=== PATIENT | female | born 1980 | race Caucasian/White ===

== ENCOUNTER 2017-03-25 20:24 | Inpatient (IN) ==
[2017-03-25] MEDS ORDERED: 0.9 % Sodium Chloride 1,000 ML IVC ONE (20:36)
[2017-03-25 20:42] LABS: Basophils % 0.1 %; Hematocrit 38.2 % (35.3-44.9); Hemoglobin 12.9 g/dL (11.5-15.4); Immature Granulocytes % 0.3 % (0-4); Lymphocytes # 0.4 K/mcL (0.6-4.6); Lymphocytes % 2.5 %; Mean Corpuscular HGB Conc 33.8 g/dL (31.6-35.5); Mean Corpuscular Hemoglobin 30.1 pg (28.0-33.3); Mean Corpuscular Volume 89.3 fL (83.0-100.0); Mean Platelet Volume 10.3 fL (9.4-12.4); Monocytes # 0.6 K/mcL (0.0-1.3); Neutrophils # 14.4 K/mcL (1.6-8.9); Platelet Count 195 K/mcL (140-400); Red Blood Count 4.28 M/mcL (3.82-4.97); Red Cell Distribution Width 12.6 % (11.5-14.5); Segmented Neutrophils % 93.1 %
[2017-03-25] MEDS ORDERED: *HR* HYDROmorphone (PF) 1 MG/ML SYRINGE IVP ONE (20:44)
--- NOTE | 2017-03-25 20:47 | Emergency Department Note ---
Disposition Clinical Impression: Acute appendicitis Qualifiers: Acute appendicitis type: unspecified acute appendicitis type Qualified Code(s) : K35.80 - Unspecified acute appendicitis Disposition: Admitted As Inpatient Condition: Undetermined Time of Disposition: 22:40 Abdominal Pain HPI - General Chief Complaint: ED Abdominal Pain Stated Complaint: abdominal pains Time Seen by Provider: 03/25/17 20:27 Source: patient Mode of arrival: EMS Limitations: no limitations Nursing Notes Reviewed: Yes Vital Signs Reviewed: Yes - History of Present Illness HPI Narrative: 36-year-old female who previous medical history arrives [facility] emergency department complaining of right lower quadrant pain is radiating into her abdomen diffusely. The patient states this started last night and she started taking [id number] medications but she states it acutely worsened so she called EMS. The patient denies any other complaints other than associated nausea. The patient denies any vomiting, hematochezia, melena, diarrhea, constipation, vaginal discharge, dysuria. She is resting comfortably in bed at this time but is stating she would like some more pain medication. Pt Subjective Complaint: abdominal pain Onset (ago): hour(s) (18) Consistency: constant, Worsening Location: RLQ Pain Severity: moderate, severe Pain Scale: 8 Quality: cramping Radiation: none Migration to: no migration Improves with: nothing Worsens with: nothing Associated symptoms: Reports: nausea Treatments prior to arrival: NSAIDs, OTC medications, prescription analgesics - Related Data Allergies Allergy/AdvReac Type Severity Reaction Status Date / Time Sulfa (Sulfonamide AdvReac Rash Verified 03/25/17 20:26 Antibiotics) All systems ED: reviewed and negative except as stated. Constitutional: Reports: fever, chills. Denies: weakness ENT ED: Denies: congestion Cardiovascular: Denies: chest pain Respiratory: Denies: dyspnea Gastrointestinal: Reports: abdominal pain, nausea. Denies: vomiting, diarrhea, constipation, hematemesis, melena, hematochezia Genitourinary: Denies: urgency, dysuria, frequency, hematuria, discharge, abnormal menses Musculoskeletal: Denies: back pain Integumentary: Denies: rash Neurological: Denies: headache Abdominal Pain PMH - Past Medical History Medical history: Reports: no medical history Female Surgical History: Reports: other (Endometrial laparoscopy) [employer] history: Reports: endometriosis Psychiatric history: Reports: no psych history - Social History Smoking status: Never smoker Alcohol use: Reports: rarely Drug use: Reports: none Physical Exam - General Limitations: no limitations General appearance: alert, in no apparent distress - Head Head exam: atraumatic, normocephalic, normal inspection - Eye Eye exam: Present: normal appearance, PERRL, EOMI - ENT ENT exam: normal exam, normal oropharynx, mucous membranes moist - Neck Neck exam: Present: normal inspection, full ROM, trachea midline - Chest Chest inspection: Present: normal inspection, symmetric chest wall rise - Respiratory Respiratory exam: Present: normal lung sounds bilaterally - Cardiovascular Cardiovascular exam: Present: normal rhythm, tachycardia, normal heart sounds - Abdominal Exam Abdominal exam: Present: soft, tenderness (RLQ), guarding (voluntary), heel tap sign, tenderness at McBurney's Point. Absent: distention, rebound, rigidity, Blevins's sign, Rovsing's sign - Extremities Exam Extremities exam: Present: normal inspection, full ROM. Absent: tenderness, pedal edema Course Vital Signs Temperature 101.9 F H 03/25/17 20:26 Pulse Rate 116 03/25/17 20:26 Respiratory Rate 20 03/25/17 20:26 Blood Pressure 119/77 03/25/17 20:26 O2 Sat by Pulse Oximetry 97 03/25/17 20:26 Temperature 99.1 F 03/26/17 01:03 Pulse Rate 92 03/26/17 01:03 Respiratory Rate 12 03/26/17 01:03 Blood Pressure 98/61 03/26/17 01:03 O2 Sat by Pulse Oximetry 96 03/26/17 01:03 Oxygen Delivery Oxygen Delivery Room Air Abdominal Pain - MDM Narrative Medical decision making narrative: Patient's CT findings consistent with appendicitis. The patient is a leukocytosis that is new. We will consult surgery at this time. The patient was started on Zosyn. They noted that the CT scan shows no signs of definitive rupture. There is a moderate amount of pelvic fluid as well. Spoke to Dr. Celis who accepted patient to his service. - Lab Data Lab results reviewed: Yes I reviewed the patient's lab results. Result diagrams: 03/25/17 20:37 03/25/17 20:37 Lab Results 03/25/17 03/25/17 03/25/17 Range/Units 20:37 20:37 20:48 WBC 15.4 H (4.3-11.1) K/mcL RBC 4.28 (3.82-4.97) M/mcL Hgb 12.9 (11.5-15.4) g/dL Hct 38.2 (35.3-44.9) % MCV 89.3 (83.0-100.0) fL MCH 30.1 (28.0-33.3) pg MCHC 33.8 (31.6-35.5) g/dL RDW 12.6 (11.5-14.5) % Plt Count 195 (140-400) K/mcL MPV 10.3 (9.4-12.4) fL Immature Gran % 0.3 (0-4) % Seg Neutrophils % 93.1 % Lymphocytes % 2.5 % Monocytes % 4.0 % Eosinophils % 0.0 % Basophils % 0.1 % Neutrophils # 14.4 H (1.6-8.9) K/mcL Lymphocytes # 0.4 L (0.6-4.6) K/mcL Monocytes # 0.6 (0.0-1.3) K/mcL Eosinophils # 0.0 (0.0-0.6) K/mcL Basophils # 0.0 (0.0-0.2) K/mcL Sodium 134 L (136-145) mEq/L Potassium 3.8 (3.5-4.5) mEq/L Chloride 104 (98-109) mEq/L Carbon Dioxide 20 (19-29) mEq/L BUN 14 (7-20) mg/dL Creatinine 0.68 (0.57-1.11) mg/dL Est GFR ( Amer) > 60 (> 60) Est GFR (Non-Af Amer) > 60 (> 60) BUN/Creatinine Ratio 21 (6-26) Glucose 114 H (70-99) mg/dL Calculated Osmolality 279 L (280-300) Lactic Acid 0.7 (0.5-2.2) mmol/L Calcium 8.7 (8.6-10.8) mg/dL Total Bilirubin 0.8 (0.2-1.2) mg/dL AST 19 (5-34) Units/L ALT 19 (0-55) Units/L Alkaline Phosphatase 48 (38-126) Units/L Serum Total Protein 7.1 (6.0-8.3) g/dL Albumin 3.5 (3.5-5.0) g/dL Globulin 3.6 H (2.4-3.5) g/dL Albumin/Globulin Ratio 1.0 L (1.1-2.2) Lipase < 10 (8-78) Units/L Urine Color (Yellow) Urine Clarity (Clear) Urine pH (5.0-8.0) pH Units Ur Specific Nelson (1.010-1.025) Urine Protein (Neg-Trace) mg/dL Urine Glucose (UA) (Normal) mg/dL Urine Ketones (Negative) mg/dL Urine Blood (Negative) Urine Nitrite (Negative) Urine Bilirubin (Negative) Urine Urobilinogen (Normal) mg/dL Ur Leukocyte Esterase (Negative) Urine Microscopic RBC (0-3) per hpf Urine Microscopic WBC (0-3) per hpf Ur Squamous Epith Cells (None-Few) per lpf Urine Bacteria (None-Few) per hpf Hyaline Casts (None-Few) per lpf Ur Culture Indicated? (NO) Urine Test (Negative) 03/25/17 03/25/17 Range/Units 21:10 21:10 WBC (4.3-11.1) K/mcL RBC (3.82-4.97) M/mcL Hgb (11.5-15.4) g/dL Hct (35.3-44.9) % MCV (83.0-100.0) fL MCH (28.0-33.3) pg MCHC (31.6-35.5) g/dL RDW (11.5-14.5) % Plt Count (140-400) K/mcL MPV (9.4-12.4) fL Immature Gran % (0-4) % Seg Neutrophils % % Lymphocytes % % Monocytes % % Eosinophils % % Basophils % % Neutrophils # (1.6-8.9) K/mcL Lymphocytes # (0.6-4.6) K/mcL Monocytes # (0.0-1.3) K/mcL Eosinophils # (0.0-0.6) K/mcL Basophils # (0.0-0.2) K/mcL Sodium (136-145) mEq/L Potassium (3.5-4.5) mEq/L Chloride (98-109) mEq/L Carbon Dioxide (19-29) mEq/L BUN (7-20) mg/dL Creatinine (0.57-1.11) mg/dL Est GFR ( Amer) (> 60) Est GFR (Non-Af Amer) (> 60) BUN/Creatinine Ratio (6-26) Glucose (70-99) mg/dL Calculated Osmolality (280-300) Lactic Acid (0.5-2.2) mmol/L Calcium (8.6-10.8) mg/dL Total Bilirubin (0.2-1.2) mg/dL AST (5-34) Units/L ALT (0-55) Units/L Alkaline Phosphatase (38-126) Units/L Serum Total Protein (6.0-8.3) g/dL Albumin (3.5-5.0) g/dL Globulin (2.4-3.5) g/dL Albumin/Globulin Ratio (1.1-2.2) Lipase (8-78) Units/L Urine Color Yellow (Yellow) Urine Clarity Clear (Clear) Urine pH 6.0 (5.0-8.0) pH Units Ur Specific Nelson 1.023 (1.010-1.025) Urine Protein Negative (Neg-Trace) mg/dL Urine Glucose (UA) Normal (Normal) mg/dL Urine Ketones >=160 H (Negative) mg/dL Urine Blood Negative (Negative) Urine Nitrite Positive A (Negative) Urine Bilirubin Negative (Negative) Urine Urobilinogen Normal (Normal) mg/dL Ur Leukocyte Esterase Negative (Negative) Urine Microscopic RBC 3-5 H (0-3) per hpf Urine Microscopic WBC 5-15 H (0-3) per hpf Ur Squamous Epith Cells Many H (None-Few) per lpf Urine Bacteria Moderate H (None-Few) per hpf Hyaline Casts None Seen (None-Few) per lpf Ur Culture Indicated? YES A (NO) Urine Test Negative (Negative) - Radiology Data Radiology results reviewed: Yes I reviewed the patient's radiology results. Abdomen/Pelvis CT 03/25/17 20:30 IMPRESSION: 1. Findings compatible with acute appendicitis. No definite rupture is identified at this time. No fluid collections are identified. No extraluminal gas is seen. 2. Moderate amount of free pelvic fluid. D/ / Roberto Pelaez MD / Roberto Pelaez MD Interpreting Provider: Roberto Pelaez MD Chest X-Ray 03/25/17 20:36 IMPRESSION: Negative portable chest. D/ / Memo Avilez MD / Memo Avilez MD Interpreting Provider: Memo Avilez MD
[2017-03-25 20:58] LABS: Alanine Aminotransferase 19 Units/L (0-55); Albumin 3.5 g/dL (3.5-5.0); Alkaline Phosphatase 48 Units/L (38-126); Aspartate Amino Transferase 19 Units/L (5-34); BUN/Creatinine Ratio 21 (6-26); Blood Urea Nitrogen 14 mg/dL (7-20); Calcium 8.7 mg/dL (8.6-10.8); Carbon Dioxide 20 mEq/L (19-29); Chloride 104 mEq/L (98-109); Globulin 3.6 g/dL (2.4-3.5); Glucose 114 mg/dL (70-99); Osmolality,Calculated 279 (280-300); Potassium 3.8 mEq/L (3.5-4.5); Sodium 134 mEq/L (136-145); Total Protein 7.1 g/dL (6.0-8.3); eGFR For African Americans > 60 (> 60); eGFR For Non-African Americans > 60 (> 60)
[2017-03-25 21:01] LABS: Lipase < 10 Units/L (8-78)
[2017-03-25 21:10] LABS: Bilirubin,Total 0.8 mg/dL (0.2-1.2)
--- NOTE | 2017-03-25 21:18 | Emergency Department Note ---
START Narrative - START START: I examined this patient and my medical decision-making was reviewed with the Resident Physician. I agree with the documented findings, disposition and treatment plan as described except to the extent set forth below. 36 year old female presents to the ED with complaitns of RUQ and RLQ pain that started a few days ago and is now located in the periumbilical to RLQ area. Lj states that she called the squad because the diffuse burning pain was causing difficult wiht movement. Patient bryan snot have a surigcal abdomen at this time. (-) murphys, and mcBurneys point. Lj states that she ahs had nausea without vomitting but also decreased appetite. She has no difficulty with urination at thsi time and denies diarrhea or blood in urine or stool. Erika dnies cough cold congestion symptms as well. She has been on a Bone Marrow Broth diet recently and partner at bedside states that last time she did this she had simliar symptoms but they resoleved and thinks that maybe it may be due to that. Lj is not complaining of any neurologica symptms at this time. Patient has a fever in the department and is tachcyardiac with a WBC of 15. Lj meeets SIRS criteria and we will do a ABCT with IV contrst to rule out appendicitis, colitis, acute christie and other simliar intrabaodminal pathologies.
[2017-03-25 21:27] LABS: Bilirubin,Urine Negative (Negative); Blood,Urine Negative (Negative); Clarity,Urine Clear (Clear); Color,Urine Yellow (Yellow); Glucose,Urine (UA) Normal (Normal); Ketones,Urine >=160 mg/dL (Negative); Leukocyte Esterase,Urine Negative (Negative); Nitrite,Urine Positive (Negative); Protein,Urine Negative (Neg-Trace); Specific Gravity,Urine 1.023 (1.010-1.025); Urobilinogen,Urine Normal (Normal)
[2017-03-25 21:31] LABS: Bacteria,Urine Moderate per hpf (None-Few); Hyaline Casts,Urine None Seen per lpf (None-Few); Squamous Epithelial Cell,Urine Many per lpf (None-Few)
[2017-03-25] MEDS ORDERED: Piperacillin/Tazobactam 3.375 GM in Water for inj. (sterile) 20 ML IVP ONE (22:19)
[2017-03-25] MEDS ORDERED: Piperacillin/Tazobactam 3.375 GM/200 ML BAG IVPB ONE (22:56)
[2017-03-26] MEDS ORDERED: Ondansetron 4 MG/2 ML VIAL IVP PRN (00:41)
[2017-03-26] MEDS: *HR* HYDROmorphone (PF) 1 MG/ML SYRINGE IVP PRN ×5 (01:32→18:31)
[2017-03-26] MEDS: 0.9 % Sodium Chloride 1,000 ML IVC SCH ×3 (01:32→18:33)
[2017-03-26] MEDS ORDERED: Acetaminophen IV 1,000 MG/100 ML INFUS..BTL IVPB ONE (06:12)
--- NOTE | 2017-03-26 06:36 | General Surg History&Physical ---
Date of Encounter: 03/26/17 Time of Encounter: 06:00 Assessment and Plan (1) RLQ abdominal pain Current Visit: Yes Status: Acute The assessment and plan as outlined above was discussed with the patient and/or family members who expressed understanding and agreement. All questions were answered. Given free fluid in the pelvis (detailed below) and pt's history of endometriosis differential diagnoses include perforated appendix, ruptured ovarian cyst. Plan: 1. Will obtain Non-OB transvaginal ultrasound (will use straight/cath clark to inflate the bladder for ultrasound given NPO for possible surgical intervention in the next 24-48 hours. 2. Continue NPO 3. Continue GI and DVT prohpylaxis 4. Continue IVF and discomfort management 5. Preferred 4.5G IV Zosyn, but per pharmacy the hospital is out, switched to 3.[address] noted Findings compatible with acute appendicitis. No definite rupture is identified at this time. No fluid collections are identified. No extraluminal gas is seen. 2. Moderate amount of free pelvic fluid. (2) Acute appendicitis Current Visit: Yes Status: Acute The assessment and plan as outlined above was discussed with the patient and/or family members who expressed understanding and agreement. All questions were answered. See above Qualifiers: Acute appendicitis type: with localized peritonitis Qualified Code(s): K35.3 - Acute appendicitis with localized peritonitis (3) Endometriosis Current Visit: Yes Status: Acute The assessment and plan as outlined above was discussed with the patient and/or family members who expressed understanding and agreement. All questions were answered. See above (4) UTI (urinary tract infection) Current Visit: Yes Status: Acute The assessment and plan as outlined above was discussed with the patient and/or family members who expressed understanding and agreement. All questions were answered. UTI present upon admission. Zosyn has been started. Culture and sensitivities pending Will need clark today for bladder inflation for transvaginal ultrasound. will d/ c clark after procedure. Qualifiers: Urinary tract infection type: acute cystitis Hematuria presence: without hematuria Qualified Code(s): N30.00 - Acute cystitis without hematuria (5) Refusal of blood transfusions as patient is Mandaen Current Visit: Yes Status: Chronic The assessment and plan as outlined above was discussed with the patient and/or family members who expressed understanding and agreement. All questions were answered. Patient states Cell saver, volume expanders, and Epogen are acceptable if the need arises. History of Present Illness Chief complaint: RLQ abdominal pain HPI: Ms. Currie is a pleasant, 36-year-old female who has a past medical history of endometriosis, gluten allergy, jain affiliation of Mandaen (and preemptively refuses blood or blood products but says that cell saver, volume expanders, or Epogen are acceptable), and a surgical history of right ankle/foot osteomyelitis as a child. She has a past family history of her mother is due to cervical cancer, her father and siblings are living and without health problems. Her is at bedside. She presented on 03/25/2017 for complaints of right lower quadrant pain. Per patient and her , they called the squad because she did not feel as though "she could tolerate her trying to lift or help her or the ride in the car over." She reports the pain began as a 10/10 in the right lower quadrant, was aggravated by movement, lifting her leg, walking, touching the abdomen, or breathing. She denies any alleviating factors. She denies nausea, vomiting, constipation, diarrhea, or changes in bowel habits. She denies vaginal discharge. She denies headache, dizziness, syncope, near syncope, chest pain, shortness of breath, or generalized weakness. She endorses lack of appetite, fevers, and fatigue. She states this is the 2nd episode of this type of discomfort and presentation. She reports that this occurred this summer lasted approximately 2 days, and spontaneously resolved. She did not seek treatment or have any exams done at that time , she felt it may have been related to her gluten allergy. Her hospital course thus by far has included a CT of the abdomen and pelvis which revealed things compatible with acute appendicitis, no definite rupture is identified at this time, no fluid collections or extraluminal gases identified. There is a moderate amount of free pelvic fluid. She is febrile with a T max of 101.9. She is noted to have leukocytosis with a white blood cell count of 15.4 and without bandemia. Past Med Surg Social Fam HX - Past Medical History Source: patient Medical history: other (Gluten allergy; endometriosis) Psychiatric history: no psych history - Past Surgical History Surgical History: other (Laparoscopy for endometriosis, right ankle surgery for osteomyelitis) - Social History Smoking Status: Never smoker Smokeless Tobacco Status: No Alcohol use: rarely Drug use: none Occupational status: employed Current living situation: Home - Independent Activity Level: Independent ambulation Recent Out of Country Travel Within the Last 8 Weeks: No Exposure or Possible Exposure to Illness During Travel: No - Family History Mother Adopted: No Race: Family Member Ethnicity: Non- Living Status: Cause of : In 2017 -Cervical cancer Hx Family Cardiac Disorders: No Hx Family Respiratory Disorders: No Hx Family Cancer: Yes Hx Family GI Disorders: No Hx Family Genitourinary Disorders: No Hx Family Endocrine Disorder: No Hx Family Musculoskeletal Disorders: No Hx Family Neuromuscular Disorders: No Hx Family Neurologic Disorders: No Hx Family HEENT Disorders: No Hx Family Autoimmune Disorders: No Hx Family Reproductive Disorders: No Hx Family Psychosocial Disorders: No Medications and Allergies No Known Home Drugs 03/26/17 [History] 3 Allergy/AdvReac Type Severity Reaction Status Date / Time gluten Allergy Gastrointestinal Verified 03/26/17 06:42 Upset Sulfa (Sulfonamide AdvReac Rash Verified 03/25/17 20:26 Antibiotics) Review of Systems All systems PM: reviewed and no additional remarkable complaints except as stated All systems PM: A 10-system review of systems was performed and is negative for pertinent findings except as documented above in the HPI. General Surgery Exam Initial Vital Signs Temp Pulse Resp BP Pulse Ox 101.9 F H 116 20 119/77 97 03/25/17 20:26 03/25/17 20:26 03/25/17 20:26 03/25/17 20:26 03/25/17 20:26 - Additional Findings VITAL SIGNS: Reviewed. GENERAL: In no apparent distress. HEENT: atraumatic, normocephalic, normal occular movements, hearing grossly intact. Oropharynx WNL NECK: No adenopathy, no JVD. CHEST: Chest with clear breath sounds bilaterally. No wheezes, rales, or rhonchi. CARDIAC: Regular rate and rhythm. S1 and S2, without murmurs, gallops, or rubs. VASCULAR: No Edema. Peripheral pulses normal and equal in all extremities. ABDOMEN: bowel sounds present in all 4 quadrants, no signs of trauma or bleeding, exquisitely tender in the right lower quadrant, positive Blevins sign, positive McBurney's point, positive obturator sign. MUSCULOSKELETAL: no focal deficits noted. NEUROLOGIC EXAM: Alert and oriented x 3. No focal sensory or strength deficits. Speech normal. Follows commands. PSYCHIATRIC: A&O x3. Mood normal. SKIN: No rash or lesions. Results - Labs 03/25/17 20:37 03/25/17 20:37 Abnormal lab results WBC 15.4 K/mcL (4.3-11.1) H 03/25/17 20:37 Neutrophils # 14.4 K/mcL (1.6-8.9) H 03/25/17 20:37 Lymphocytes # 0.4 K/mcL (0.6-4.6) L 03/25/17 20:37 Sodium 134 mEq/L (136-145) L 03/25/17 20:37 Glucose 114 mg/dL (70-99) H 03/25/17 20:37 POC Glucose 98 (58-89) H 03/26/17 05:26 Calculated Osmolality 279 (280-300) L 03/25/17 20:37 Globulin 3.6 g/dL (2.4-3.5) H 03/25/17 20:37 Albumin/Globulin Ratio 1.0 (1.1-2.2) L 03/25/17 20:37 Urine Ketones >=160 mg/dL (Negative) H 03/25/17 21:10 Urine Nitrite Positive (Negative) A 03/25/17 21:10 Urine Microscopic RBC 3-5 per hpf (0-3) H 03/25/17 21:10 Urine Microscopic WBC 5-15 per hpf (0-3) H 03/25/17 21:10 Ur Squamous Epith Cells Many per lpf (None-Few) H 03/25/17 21:10 Urine Bacteria Moderate per hpf (None-Few) H 03/25/17 21:10 Ur Culture Indicated? YES (NO) A 03/25/17 21:10 All other labs normal. - Imaging Additional studies: Abdomen/Pelvis CT 03/25/17 20:30 IMPRESSION: 1. Findings compatible with acute appendicitis. No definite rupture is identified at this time. No fluid collections are identified. No extraluminal gas is seen. 2. Moderate amount of free pelvic fluid. D/ / Roberto Pelaez MD / Roberto Pelaez MD Interpreting Provider: Roberto Pelaez MD Chest X-Ray 03/25/17 20:36 IMPRESSION: Negative portable chest. D/ / Memo Avilez MD / Memo Avilez MD Interpreting Provider: Memo Avilez MD
[2017-03-26] MEDS ORDERED: *HR* Promethazine 25 MG/ML VIAL IVP PRN (07:02)
[2017-03-26] MEDS ORDERED: Naloxone 0.4 MG/ML INJ IVP PRN (07:02)
[2017-03-26] MEDS ORDERED: *HR* Metoprolol 5 MG/5 ML VIAL IVP PRN (07:02)
[2017-03-26] MEDS ORDERED: Ketorolac 15 MG/ML VIAL IVP PRN (07:04)
[2017-03-26] MEDS ORDERED: Piperacillin/Tazobactam 3.375 GM/200 ML BAG IVPB SCH (08:00)
[2017-03-26] MEDS: Ondansetron 4 MG/2 ML VIAL IVP SCH ×5 (09:24→23:28)
[2017-03-26] MEDS: Pantoprazole 40 MG VIAL IVP SCH (09:24)
[2017-03-26] MEDS ORDERED: Acetaminophen IV 1,000 MG/100 ML INFUS..BTL IVPB PRN (15:14)
[2017-03-26] MEDS: Piperacillin/Tazobactam 3.375 GM/200 ML BAG IVPB SCH ×3 (16:00→23:33)
[2017-03-26] MEDS: Ketorolac 15 MG/ML VIAL IVP SCH ×2 (17:33→23:27)
[2017-03-26] MEDS: Acetaminophen IV 1,000 MG/100 ML INFUS..BTL IVPB PRN (22:05)
[2017-03-27] MEDS: Ondansetron 4 MG/2 ML VIAL IVP SCH ×5 (04:15→19:54)
[2017-03-27] MEDS: 0.9 % Sodium Chloride 1,000 ML IVC SCH (04:35)
[2017-03-27] MEDS: Ketorolac 15 MG/ML VIAL IVP SCH ×3 (05:57→18:01)
[2017-03-27] MEDS: Pantoprazole 40 MG VIAL IVP SCH (09:16)
[2017-03-27] MEDS: Piperacillin/Tazobactam 3.375 GM/200 ML BAG IVPB SCH ×2 (09:16→11:08)
[2017-03-27] MEDS: *HR* HYDROmorphone (PF) 1 MG/ML SYRINGE IVP PRN ×3 (09:31→18:39)
[2017-03-27] MEDS ORDERED: 0.9 % Sodium Chloride 500 ML IVC ONE ×2 (09:32→12:09)
[2017-03-27] MEDS ORDERED: *HR* HYDROmorphone (PF) 1 MG/ML SYRINGE IVP ONE (09:33)
--- NOTE | 2017-03-27 09:49 | General Surgery Progress Note ---
Date of Encounter: 03/27/17 Time of Encounter: 09:47 - Assessment and Plan (1) RLQ abdominal pain Current Visit: Yes Status: Acute Considerations was given to differential diagnosis of perforated appendix, ruptured ovarian cyst (given history of endometriosis and free fluid in the pelvis). CT of abdomen and pelvice completed on 03/25/2017 noted acute appendicitis, no definite rupture, no fluid collections, no extraluminal gas, moderate amount of free pelvic fluid and therefore, A transvaginal ultrasound was completed which revealed free pelvic fluid, normal right ovary, 9 mm cyst on the left ovary. Her last menstrual period was 03/07/2017. She does report feeling thirsty. 03/27/2017 tachycardia, heart rate 1teens, febrile 99.7 despite scheduled IV Tylenol and Toradol, hypotensive 98/56, and abdominal pain with light palpation consistent with peritoneal irritation on exam. Plan: 1. Bolus 500 ML 0.9 normal saline 2. Continue NPO 3. Continue GI and DVT prohpylaxis 4. Continue IVF and discomfort management; IV Dilaudid 0.5 mg x1 now. 5. Preferred 4.5G IV Zosyn, but per pharmacy the hospital is out, switched to 3.375 G; Continue Zosyn (day 2). Per microbiology, sensitivities will be available int the am. Will consider adding Levaquin (750 mg daily) for gram negative rods in urine (sensitivities pending) and Diflucan (200 mg today, then 100 mg daily for 6 days) pending clinical course and final culture results. 6. IS 7. Will review above with Dr. Celis (2) Acute appendicitis Current Visit: Yes Status: Acute See above Qualifiers: Acute appendicitis type: with localized peritonitis Qualified Code(s): K35.3 - Acute appendicitis with localized peritonitis (3) UTI (urinary tract infection) Current Visit: Yes Status: Acute See above Qualifiers: Urinary tract infection type: acute cystitis Hematuria presence: without hematuria Qualified Code(s): N30.00 - Acute cystitis without hematuria (4) Refusal of blood transfusions as patient is Gnosticist Current Visit: Yes Status: Chronic (5) Endometriosis Current Visit: No Status: Chronic Subjective Patient reports: still having pain, voiding w/o difficulty, flatus, no bowel movement, nausea, fever Narrative: States low abdominal pain remains with movement and is not improving. She denies any improvement in abdominal discomfort with activity and states pain medication only relieves it to the point that she can lay "perfectly still and then it is tolerable." Reports fevers, sweats, and chills. reports increased feelings in overall weakness. Objective Vital Signs - Last 8 Hours Temp Pulse Resp BP Pulse Ox 03/27/17 06:53 99.7 F H 106 14 96/58 96 03/27/17 05:07 98.7 F 95 14 103/68 99 Intake and Output 03/26/17 03/27/17 03/27/17 23:59 07:59 15:59 Intake Total 1050 / 1050 1320 / 1320 Output Total 0 / 0 Balance 1050 / 1050 1320 / 1320 Intake: IV Fluids 1050 / 1050 1200 / 1200 0.9 % Sodium Chloride 1,000 ML 750 / 750 1000 / 1000 @ 100 mls/hr IVC .Q10H ELIZABETH Rx#: [id number] Ofirmev 1,000 mg/100 ml 1,000 100 / 100 mg In 100 ml @ 400 mls/hr IVPB Q6H PRN Rx#:[id number] Zosyn Premix 3.375 GM/200 ML 3. 200 / 200 200 / 200 375 gm In 200 ml @ 50 mls/hr IVPB Q8HR ELIZABETH Rx#:[id number] Oral 0 / 0 120 / 120 Output: Urine 0 / 0 Other: Meal Dinner NPO NPO # Voids 1 1 Weight 71.214 kg Blood Glucose* 82 73 Patient Weight 03/27/17 23:59 Weight 71.214 kg - General physical appearance no distress (no resp or cardiac distress; appears acutely ill compared to yesterday.), moderate pain - Eyes normal ocular movement - ENT atraumatic, normocephalic - Neck Neck exam: trachea midline, no venous distension - Respiratory normal expansion, normal respiratory effort, clear to auscultation - Cardiovascular Cardiovascular exam: Present: RRR, no murmurs/rubs/gallops - Abdomen Abdomen: Present: bowel sounds present, soft, tender Abdominal Tenderness: RLQ, LLQ Hernia: none - Integumentary no rash, no growths - Neurologic normal coordination, normal sensation - Musculoskeletal normal gait, normal posture - Psychiatric oriented to time, oriented to person, oriented to place, speech is normal, memory intact - Labs 03/27/17 09:22 03/27/17 09:22 Consult Discharge Plan - Plan Referrals: NONE,PCP [Primary Care Provider] -
[2017-03-27 09:50] LABS: Basophils % 0.1 %; Eosinophils # 0.1 K/mcL (0.0-0.6); Eosinophils % 0.4 %; Immature Granulocytes % 2.2 % (0-4); Immature Platelets 4.5 % (1.1-6.1); Lymphocytes # 0.9 K/mcL (0.6-4.6); Lymphocytes % 4.7 %; Mean Corpuscular HGB Conc 32.8 g/dL (31.6-35.5); Mean Corpuscular Hemoglobin 30.4 pg (28.0-33.3); Mean Corpuscular Volume 92.8 fL (83.0-100.0); Mean Platelet Volume 10.9 fL (9.4-12.4); Monocytes # 0.3 K/mcL (0.0-1.3); Monocytes % 1.5 %; Neutrophils # 16.8 K/mcL (1.6-8.9); Platelet Count 141 K/mcL (140-400); Red Blood Count 3.45 M/mcL (3.82-4.97); Red Cell Distribution Width 13.3 % (11.5-14.5); Segmented Neutrophils % 91.1 %
[2017-03-27 09:52] LABS: Hemoglobin 10.5 g/dL (11.5-15.4)
[2017-03-27 10:01] LABS: BUN/Creatinine Ratio 19 (6-26); Blood Urea Nitrogen 14 mg/dL (7-20); Calcium 8.4 mg/dL (8.6-10.8); Carbon Dioxide 18 mEq/L (19-29); Chloride 107 mEq/L (98-109); Glucose 74 mg/dL (70-99); Osmolality,Calculated 279 (280-300); Potassium 3.7 mEq/L (3.5-4.5); Sodium 135 mEq/L (136-145); eGFR For African Americans > 60 (> 60); eGFR For Non-African Americans > 60 (> 60)
[2017-03-27] MEDS: Acetaminophen IV 1,000 MG/100 ML INFUS..BTL IVPB PRN (15:49)
[2017-03-27] MEDS: MetroNIDAZOLE 500 MG/100 ML 500 MG/100 ML BAG IVPB SCH (15:50)
[2017-03-28] MEDS: Ketorolac 15 MG/ML VIAL IVP SCH ×5 (00:14→23:47)
[2017-03-28] MEDS: MetroNIDAZOLE 500 MG/100 ML 500 MG/100 ML BAG IVPB SCH ×3 (00:14→15:26)
[2017-03-28] MEDS: Ondansetron 4 MG/2 ML VIAL IVP SCH ×7 (00:14→23:48)
[2017-03-28] MEDS: 0.9 % Sodium Chloride 1,000 ML IVC SCH ×2 (04:13→15:41)
[2017-03-28] MEDS: *HR* HYDROmorphone (PF) 1 MG/ML SYRINGE IVP PRN ×5 (04:13→23:48)
[2017-03-28 05:18] LABS: Basophils % 0.2 %; Eosinophils # 0.1 K/mcL (0.0-0.6); Eosinophils % 0.7 %; Hematocrit 30.8 % (35.3-44.9); Hemoglobin 10.1 g/dL (11.5-15.4); Immature Granulocytes % 1.2 % (0-4); Lymphocytes # 0.7 K/mcL (0.6-4.6); Lymphocytes % 5.1 %; Mean Corpuscular HGB Conc 32.8 g/dL (31.6-35.5); Mean Corpuscular Hemoglobin 30.1 pg (28.0-33.3); Mean Corpuscular Volume 91.9 fL (83.0-100.0); Mean Platelet Volume 10.5 fL (9.4-12.4); Monocytes # 0.4 K/mcL (0.0-1.3); Monocytes % 2.6 %; Neutrophils # 12.6 K/mcL (1.6-8.9); Platelet Count 133 K/mcL (140-400); Red Blood Count 3.35 M/mcL (3.82-4.97); Red Cell Distribution Width 13.3 % (11.5-14.5); Segmented Neutrophils % 90.2 %
[2017-03-28 05:29] LABS: BUN/Creatinine Ratio 15 (6-26); Blood Urea Nitrogen 10 mg/dL (7-20); Calcium 8.1 mg/dL (8.6-10.8); Carbon Dioxide 20 mEq/L (19-29); Chloride 110 mEq/L (98-109); Glucose 93 mg/dL (70-99); Osmolality,Calculated 281 (280-300); Potassium 3.6 mEq/L (3.5-4.5); Sodium 136 mEq/L (136-145); eGFR For African Americans > 60 (> 60); eGFR For Non-African Americans > 60 (> 60)
[2017-03-28] MEDS: Pantoprazole 40 MG VIAL IVP SCH (08:20)
--- NOTE | 2017-03-28 09:35 | General Surgery Progress Note ---
Date of Encounter: 03/28/17 Time of Encounter: 09:00 - Assessment and Plan (1) Acute appendicitis Current Visit: Yes Status: Acute Continue to treat with conservative measures due to perforation: Clear liquids as tolerated IV antibiotics- Cipro and Flagyl (day 2) IV fluids- 100ml/hour Scheduled Zofran for dilaudid Supportive care and pain control- scheduled Toradol and Ofirmev, prn dilaudid Serial abdominal exams IS every 1 hour while awake- patient counseled on use of spirometer Repeat am labs Plan for interval appendectomy in the next 6-[address] Ceils Qualifiers: Acute appendicitis type: with localized peritonitis Qualified Code(s): K35.3 - Acute appendicitis with localized peritonitis (2) UTI (urinary tract infection) Current Visit: Yes Status: Acute Culture- e. coli Zosyn added as patient states she is unable to take PO antibiotics at this time Qualifiers: Urinary tract infection type: acute cystitis Hematuria presence: without hematuria Qualified Code(s): N30.00 - Acute cystitis without hematuria (3) Endometriosis Current Visit: No Status: Chronic (4) Refusal of blood transfusions as patient is Evangelical Current Visit: Yes Status: Chronic (5) DVT prophylaxis Current Visit: Yes Status: Acute EPCDs to bilateral lower extremities for DVT prophylaxis Ambulate hallways TID with assistance Subjective Patient reports: no new complaints, feels better, still having pain, voiding w/ o difficulty, flatus, no bowel movement, nausea (controlled with scheduled zofran), fever (Tmax 101.6, Tcurrent 99), other (Patient states that she feels good as long as she stays on top of her pain medication. She states that she is drinking water and apple juice.) Objective Vital Signs - Last 8 Hours Temp Pulse Resp BP Pulse Ox 03/28/17 06:47 99.0 F 92 16 106/69 95 03/28/17 04:28 99.5 F 87 14 105/68 94 Intake and Output 03/27/17 03/28/17 03/28/17 23:59 07:59 15:59 Intake Total 520 / 520 1250 / 1250 Output Total 800 / 800 250 / 250 400 / 400 Balance -280 / -280 1000 / 1000 -400 / -400 Intake: IV Fluids 400 / 400 1250 / 1250 0.9 % Sodium Chloride 1,000 ML 950 / 950 @ 100 mls/hr IVC .Q10H [facility] Rx#: [id number] Ofirmev 1,000 mg/100 ml 1,000 100 / 100 mg In 100 ml @ 400 mls/hr IVPB Q6H PRN Rx#:[id number] Cipro Premix 400 MG/200 ML 400 200 / 200 200 / 200 mg In 200 ml @ 200 mls/hr IVPB Q12HR [facility] Rx#:[id number] Flagyl Premix 500 MG/100 ML 500 100 / 100 100 / 100 mg In 100 ml @ 100 mls/hr IVPB Q8HR [facility] Rx#:[id number] Oral 120 / 120 0 / 0 Output: Urine 800 / 800 250 / 250 400 / 400 Other: # Voids 1 Weight 70.942 kg Blood Glucose* 120 Patient Weight 03/28/17 23:59 Weight 70.942 kg - General physical appearance well developed, well nourished, no distress - Eyes normal ocular movement - ENT normal mucosa, atraumatic, normocephalic - Neck Neck exam: trachea midline - Respiratory normal respiratory effort, clear to auscultation, other (diminished bibasilar bases) - Cardiovascular Cardiovascular exam: Present: RRR - Abdomen Abdomen: Present: bowel sounds present, soft, tender Abdominal Tenderness: RLQ, suprapubic - Neurologic CN 2-12 grossly intact - Psychiatric oriented to time, oriented to person, oriented to place, speech is normal, memory intact - Labs 03/28/17 05:06 03/28/17 05:06 Diabetes panel 03/28/17 Range/Units 05:06 Sodium 136 (136-145) mEq/L Potassium 3.6 (3.5-4.5) mEq/L Chloride 110 H (98-109) mEq/L Carbon Dioxide 20 (19-29) mEq/L BUN 10 (7-20) mg/dL Creatinine 0.67 (0.57-1.11) mg/dL Glucose 93 (70-99) mg/dL Calcium 8.1 L (8.6-10.8) mg/dL Calcium panel 03/28/17 Range/Units 05:06 Calcium 8.1 L (8.6-10.8) mg/dL Pituitary panel 03/28/17 Range/Units 05:06 Sodium 136 (136-145) mEq/L Potassium 3.6 (3.5-4.5) mEq/L Chloride 110 H (98-109) mEq/L Carbon Dioxide 20 (19-29) mEq/L BUN 10 (7-20) mg/dL Creatinine 0.67 (0.57-1.11) mg/dL Glucose 93 (70-99) mg/dL Calcium 8.1 L (8.6-10.8) mg/dL Adrenal panel 03/28/17 Range/Units 05:06 Sodium 136 (136-145) mEq/L Potassium 3.6 (3.5-4.5) mEq/L Chloride 110 H (98-109) mEq/L Carbon Dioxide 20 (19-29) mEq/L BUN 10 (7-20) mg/dL Creatinine 0.67 (0.57-1.11) mg/dL Glucose 93 (70-99) mg/dL Calcium 8.1 L (8.6-10.8) mg/dL Consult Discharge Plan - Plan Referrals: NONE,PCP [Primary Care Provider] - - Attending Attestation For this encounter, I have reviewed the BAKERY WORKER or PA documentation, treatment plan, and medical decision making; and I have had face to face time with this patient.
[2017-03-28] MEDS: Piperacillin/Tazobactam 3.375 GM/200 ML BAG IVPB SCH ×2 (15:43→23:55)
[2017-03-29] MEDS: 0.9 % Sodium Chloride 1,000 ML IVC SCH ×2 (04:31→14:38)
[2017-03-29] MEDS: Ondansetron 4 MG/2 ML VIAL IVP SCH ×6 (04:33→23:53)
[2017-03-29] MEDS: *HR* HYDROmorphone (PF) 1 MG/ML SYRINGE IVP PRN ×5 (04:38→23:53)
[2017-03-29] MEDS: Ketorolac 15 MG/ML VIAL IVP SCH ×4 (05:48→23:54)
[2017-03-29 06:39] LABS: Basophils % 0.2 %; Eosinophils # 0.1 K/mcL (0.0-0.6); Eosinophils % 1.1 %; Hematocrit 27.8 % (35.3-44.9); Hemoglobin 9.2 g/dL (11.5-15.4); Immature Granulocytes % 0.5 % (0-4); Lymphocytes # 0.8 K/mcL (0.6-4.6); Lymphocytes % 6.2 %; Mean Corpuscular HGB Conc 33.1 g/dL (31.6-35.5); Mean Corpuscular Hemoglobin 30.1 pg (28.0-33.3); Mean Corpuscular Volume 90.8 fL (83.0-100.0); Mean Platelet Volume 10.9 fL (9.4-12.4); Monocytes # 0.9 K/mcL (0.0-1.3); Monocytes % 6.9 %; Neutrophils # 10.7 K/mcL (1.6-8.9); Platelet Count 159 K/mcL (140-400); Red Blood Count 3.06 M/mcL (3.82-4.97); Red Cell Distribution Width 13.4 % (11.5-14.5); Segmented Neutrophils % 85.1 %
[2017-03-29] MEDS: Pantoprazole 40 MG VIAL IVP SCH (07:54)
[2017-03-29] MEDS: Piperacillin/Tazobactam 3.375 GM/200 ML BAG IVPB SCH ×2 (08:11→16:25)
--- NOTE | 2017-03-29 08:49 | General Surgery Progress Note ---
Date of Encounter: 03/29/17 Time of Encounter: 08:30 - Assessment and Plan (1) Acute appendicitis Current Visit: Yes Status: Acute The patient is currently on antibiotic therapy for suspected perforated appendicitis. Interval CAT scan demonstrates no evidence of discrete abscess. Her physical examination is improved. White blood cell count has dropped from 14,000 down to 12,000 her condition is improving on antibiotics. Maintain current diet and antibiotic therapy. Qualifiers: Acute appendicitis type: with localized peritonitis Qualified Code(s): K35.3 - Acute appendicitis with localized peritonitis Subjective Narrative: The patient feels much better today. She is essentially pain-free. Her abdominal examination is completely negative. I personally reviewed her CAT scan from last evening. There are some very small fluid accumulations in the pelvis and abdomen. There is some inflammation around the appendix. There are no discrete abscesses. She had a temperature spike yesterday however, today she is afebrile. She feels that she is much better than yesterday Objective Vital Signs - Last 8 Hours Temp Pulse Resp BP Pulse Ox 03/29/17 07:18 98.2 F 85 16 113/73 93 03/29/17 03:51 98.7 F 92 17 111/64 93 Intake and Output 03/28/17 03/29/17 03/29/17 23:59 07:59 15:59 Intake Total 300 / 300 1200 / 1200 Output Total 1200 / 1200 600 / 600 100 / 100 Balance -900 / -900 600 / 600 -100 / -100 Intake: IV Fluids 300 / 300 1200 / 1200 0.9 % Sodium Chloride 1,000 ML 1000 / 1000 @ 100 mls/hr IVC .Q10H [facility] Rx#: [id number] Flagyl Premix 500 MG/100 ML 500 100 / 100 mg In 100 ml @ 100 mls/hr IVPB Q8HR [facility] Rx#:[id number] Zosyn Premix 3.375 GM/200 ML 3. 200 / 200 200 / 200 375 gm In 200 ml @ 50 mls/hr IVPB Q8HR [facility] Rx#:[id number] Output: Urine 1200 / 1200 600 / 600 100 / 100 Other: Stool Size Small Stool Consistency formed Stool Color Yellow Weight 70.9 kg Patient Weight 03/29/17 23:59 Weight 70.9 kg - General physical appearance well developed, well nourished, no pain - Respiratory normal expansion, normal respiratory effort, clear to percussion, clear to auscultation - Cardiovascular Cardiovascular exam: Present: RRR, no murmurs/rubs/gallops - Abdomen Abdomen: Present: bowel sounds present, soft, non tender (Specifically no guarding or rebound. No localized tenderness.) - Neurologic normal coordination, normal sensation - Psychiatric oriented to time, oriented to person, oriented to place, speech is normal, memory intact - Labs 03/29/17 05:39 03/28/17 05:06 Consult Discharge Plan - Plan Referrals: NONE,PCP [Primary Care Provider] -
[2017-03-30] MEDS: Piperacillin/Tazobactam 3.375 GM/200 ML BAG IVPB SCH ×3 (01:30→15:25)
[2017-03-30] MEDS: Ondansetron 4 MG/2 ML VIAL IVP SCH ×5 (04:00→21:26)
[2017-03-30] MEDS: 0.9 % Sodium Chloride 1,000 ML IVC SCH (05:15)
[2017-03-30] MEDS: *HR* HYDROmorphone (PF) 1 MG/ML SYRINGE IVP PRN ×4 (05:16→21:26)
[2017-03-30] MEDS: Ketorolac 15 MG/ML VIAL IVP SCH ×3 (06:35→17:22)
[2017-03-30] MEDS: Pantoprazole 40 MG VIAL IVP SCH (08:53)
[2017-03-30] MEDS ORDERED: Furosemide 40 MG/4 ML VIAL IVP ONE (09:54)
--- NOTE | 2017-03-30 09:59 | General Surgery Progress Note ---
Date of Encounter: 03/30/17 Time of Encounter: 09:30 - Assessment and Plan (1) Acute appendicitis Current Visit: Yes Status: Acute The patient is currently on antibiotic therapy for suspected perforated appendicitis. Interval CAT scan demonstrates no evidence of discrete abscess. Her physical examination is improved. White blood cell count has dropped from 14,000 down to 12,000 her condition is improving on antibiotics. Maintain current diet and antibiotic therapy. 03/30/2017. The patient was seen and evaluated on morning rounds. She really looks quite good and has had resolution of her pain. She is 20 pounds heavier than admission secondary to third space fluid. She has bilateral pleural effusions by CAT scan and crackles on physical examination. I think it is reasonable to treat her with Lasix and I will check a BMP in the morning for any evidence of hypokalemia. Anticipate discharge tomorrow. Qualifiers: Acute appendicitis type: with localized peritonitis Qualified Code(s): K35.3 - Acute appendicitis with localized peritonitis Subjective Narrative: The patient feels very well. Her pain has tremendously improved. Abdominal examination is negative. I would like to continue her IV antibiotics for 1 more day. I will increase her regular diet and Hep-Lock the IV. She is 20 pounds heavier than admission to the hospital. She has peripheral edema as well as bilateral pleural effusions. I think it is reasonable to treat her with Lasix and I will check a basic metabolic panel tomorrow morning to assess her potassium levels. Anticipate discharge tomorrow. Objective Vital Signs - Last 8 Hours Temp Pulse Resp BP Pulse Ox 03/30/17 06:42 98.8 F 78 16 121/76 95 03/30/17 05:01 98.3 F 105 16 117/81 97 Intake and Output 03/29/17 03/30/17 03/30/17 23:59 07:59 15:59 Intake Total 200 / 200 1600 / 1600 Output Total 250 / 250 700 / 700 Balance -50 / -50 900 / 900 Intake: IV Fluids 200 / 200 1200 / 1200 0.9 % Sodium Chloride 1,000 ML 1000 / 1000 @ 100 mls/hr IVC .Q10H [facility] Rx#: [id number] Zosyn Premix 3.375 GM/200 ML 3. 200 / 200 200 / 200 375 gm In 200 ml @ 50 mls/hr IVPB Q8HR [facility] Rx#:[id number] Oral 0 / 0 400 / 400 Output: Urine 250 / 250 700 / 700 Other: Stool Size Large Stool Consistency liquid Stool Color Brown # Bowel Movements 1 Weight 173.6 kg Blood Glucose* 73 Patient Weight 03/30/17 23:59 Weight 173.6 kg - General physical appearance well developed, well nourished, no pain - Respiratory normal expansion, normal respiratory effort crackles: bilateral - Cardiovascular Cardiovascular exam: Present: RRR, no murmurs/rubs/gallops - Abdomen Abdomen: Present: bowel sounds present, soft, non tender - Neurologic normal coordination, normal sensation - Psychiatric oriented to time, oriented to person, oriented to place, speech is normal, memory intact - Labs 03/29/17 05:39 03/28/17 05:06 - VTE Documentation of Mechanical Device: Intermittent pneumatic compression device Consult Discharge Plan - Plan Referrals: NONE,PCP [Primary Care Provider] -
[2017-03-30] MEDS ORDERED: 0.9 % Sodium Chloride 500 ML IVC SCH (10:00)
[2017-03-31] MEDS: Piperacillin/Tazobactam 3.375 GM/200 ML BAG IVPB SCH ×2 (00:44→07:27)
[2017-03-31] MEDS: Ondansetron 4 MG/2 ML VIAL IVP SCH ×4 (00:44→11:55)
[2017-03-31] MEDS: *HR* HYDROmorphone (PF) 1 MG/ML SYRINGE IVP PRN ×4 (00:44→10:34)
[2017-03-31 05:03] LABS: Basophils % 0.2 %; Eosinophils # 0.1 K/mcL (0.0-0.6); Eosinophils % 1.1 %; Hematocrit 31.7 % (35.3-44.9); Hemoglobin 10.5 g/dL (11.5-15.4); Lymphocytes # 1.6 K/mcL (0.6-4.6); Lymphocytes % 13.4 %; Mean Corpuscular HGB Conc 33.1 g/dL (31.6-35.5); Mean Corpuscular Hemoglobin 29.3 pg (28.0-33.3); Mean Corpuscular Volume 88.5 fL (83.0-100.0); Mean Platelet Volume 10.4 fL (9.4-12.4); Monocytes # 1.3 K/mcL (0.0-1.3); Monocytes % 10.7 %; Neutrophils # 8.9 K/mcL (1.6-8.9); Nucleated Red Blood Cells 0.3 /100 WBC (0); Platelet Count 292 K/mcL (140-400); Red Blood Count 3.58 M/mcL (3.82-4.97); Red Cell Distribution Width 13.6 % (11.5-14.5); Segmented Neutrophils % 73.6 %
[2017-03-31 05:14] LABS: BUN/Creatinine Ratio 6 (6-26); Calcium 8.7 mg/dL (8.6-10.8); Carbon Dioxide 31 mEq/L (19-29); Chloride 102 mEq/L (98-109); Glucose 90 mg/dL (70-99); Osmolality,Calculated 286 (280-300); Sodium 140 mEq/L (136-145); eGFR For African Americans > 60 (> 60); eGFR For Non-African Americans > 60 (> 60)
[2017-03-31 05:19] LABS: Blood Urea Nitrogen 4 mg/dL (7-20)
[2017-03-31 05:26] LABS: Platelet Estimate Normal (Normal); Reactive Lymphocytes Present (Not Present)
[2017-03-31] MEDS: Pantoprazole 40 MG VIAL IVP SCH (07:26)
[2017-03-31 10:38] VITALS: BP 132/81
[2017-03-31] MEDS ORDERED: *HR* OxyCODONE/APAP 5/325 TABLET PO PRN (13:16)
--- NOTE | 2017-03-31 13:16 | Discharge Summary ---
Date of Encounter: 03/31/17 Time of Encounter: 13:00 - Discharge Diagnosis (1) Acute appendicitis Priority: Primary Status: Acute Qualifiers: Acute appendicitis type: with localized peritonitis Qualified Code(s): K35.3 - Acute appendicitis with localized peritonitis (2) UTI (urinary tract infection) Priority: Secondary Status: Acute Qualifiers: Urinary tract infection type: acute cystitis Hematuria presence: without hematuria Qualified Code(s): N30.00 - Acute cystitis without hematuria (3) Endometriosis Priority: Secondary Status: Chronic (4) Refusal of blood transfusions as patient is Gnosticism Priority: Secondary Status: Chronic - Discharge Medications Prescriptions: OxyCODONE/APAP 5/325 [Percocet 5/325 MG] 1 each PO Q4HR PRN #30 tablet PRN Reason: Moderate Pain Ondansetron ODT [Zofran ODT] 4 mg SL Q6HR #60 tab.rapdis Ibuprofen [Motrin] 800 mg PO Q8HR #50 tablet Amoxicillin/Clavulanate [Augmentin] 875 mg PO BIDWM #10 tablet Omeprazole [PriLOSEC] 20 mg PO DAILY #30 cap Home Medications: Amoxicillin/Clavulanate [Augmentin] 875 mg PO BIDWM #10 tablet 03/31/17 [Rx] Ibuprofen [Motrin] 800 mg PO Q8HR #50 tablet 03/31/17 [Rx] Omeprazole [PriLOSEC] 20 mg PO DAILY #30 cap 03/31/17 [Rx] Ondansetron ODT [Zofran ODT] 4 mg SL Q6HR #60 tab.rapdis 03/31/17 [Rx] OxyCODONE/APAP 5/325 [Percocet 5/325 MG] 1 each PO Q4HR PRN #30 tablet 03/31/17 [Rx] Allergies/Adverse Reactions: 3 Allergy/AdvReac Type Severity Reaction Status Date / Time gluten Allergy Gastrointestinal Verified 03/26/17 06:42 Upset Sulfa (Sulfonamide AdvReac Rash Verified 03/25/17 20:26 Antibiotics) General Surgery Exam Initial Vital Signs Temp Pulse Resp BP Pulse Ox 101.9 F H 116 20 119/77 97 03/25/17 20:26 03/25/17 20:26 03/25/17 20:26 03/25/17 20:26 03/25/17 20:26 - General physical appearance well developed, well nourished, no distress - Eyes normal ocular movement - ENT normal mucosa, atraumatic, normocephalic - Neck trachea midline - Respiratory normal respiratory effort, clear to auscultation - Cardiovascular Cardiovascular exam: Present: RRR - Abdomen Abdomen general surgery: Present: bowel sounds present, soft, non tender - Integumentary Integumentary general surgery: Present: warm and dry - Neurologic Present: CN 2-12 grossly intact - Musculoskeletal Present: normal gait, normal posture - Psychiatric Psychiatric general surgery: Present: appropriate, oriented to person, oriented to place, oriented to time, speech is normal, memory intact Date of admission: 03/27/17 15:05 Primary care physician: PCP NONE Discharging clinician: Eloy Celis (Ashia Acevedo) Anticipated date of discharge: 03/31/17 - Patient Status Disposition: Home, Self-Care Condition: Good Functional capacity at discharge: independent ambulation Overall status at discharge: patient is progressing back to baseline - Discharge Instructions Follow Up With: NONE,PCP [Primary Care Provider] - Tana Acevedo PEBBLE MILL OPERATOR [Advanced Practice Nurse] - 04/03/17 9:45 am (hospital follow-up) - Diet and Activity Activity: increase activity as tolerated Diet: advance to your usual diet (Protein supplements (carnation instant breakfast or equivalent) 2-3 cans per day) - Hospital Course Hospital course: Ms. Currie is a 36 year old female presented to the hospital with complaints of progressive abdominal pain. She was found to have perforated appendicitis. She was treated with conservative measures due to perforation. Conservative measures including bowel rest, IV fluids, IV antibiotics, supportive care and pain control. The patient did have a follow-up CAT scan which showed findings consistent with perforated appendicitis with no organized abscess being identified. The patient did continue to improve with conservative measures. She has been afebrile for the past 48 hours. Her vital signs are stable. Heart rate has normalized. She is tolerating a regular diet without nausea or vomiting. Her pain is well-controlled. She is voiding and ambulating without difficulty. We will begin discharge planning to home and transition to oral antibiotics. We will plan for outpatient follow-up in the next 1 week. We will plan for an interval appendectomy in the next 6-[address] Sever. - Time Spent with Patient Total time spent providing and/or coordinating discharge services: Less than 30 minutes Labs on day of discharge: Labs from last 24 hours 03/31/17 03/31/17 04:18 04:18 WBC 12.1 H RBC 3.58 L Hgb 10.5 L Hct 31.7 L MCV 88.5 MCH 29.3 MCHC 33.1 RDW 13.6 Plt Count 292 D MPV 10.4 Immature Gran % 1.0 Seg Neutrophils % 73.6 Lymphocytes % 13.4 Monocytes % 10.7 Eosinophils % 1.1 Basophils % 0.2 Neutrophils # 8.9 Lymphocytes # 1.6 Monocytes # 1.3 Eosinophils # 0.1 Basophils # 0.0 Nucleated RBCs/100 WBC 0.3 H Reactive Lymphocytes Present A Platelet Estimate Normal Sodium 140 Potassium 3.0 L Chloride 102 Carbon Dioxide 31 H BUN 4 L Creatinine 0.67 Est GFR ( Amer) > 60 Est GFR (Non-Af Amer) > 60 BUN/Creatinine Ratio 6 Glucose 90 Calculated Osmolality 286 Calcium 8.7 - Impressions ITS Impressions Abdomen/Pelvis CT 03/28/17 18:00 IMPRESSION: Again identified is evidence of acute appendicitis, complicated by interval development of a diffuse increased mesenteric edema as well as scattered fluid collections, including the largest within the posterior pelvis which shows rim enhancement. Mild diffuse urinary bladder wall thickening as above. There is nondependent gas within the urinary bladder which could be related to recent instrumentation. Correlation for cystitis is recommended. Distention of the gallbladder which shows diffuse wall thickening, also possibly related to some adjacent inflammation. Correlation for acute cholecystitis is recommended. Interval development of small moderate bilateral pleural effusions with dependent lower lobe airspace disease, atelectasis and/or pneumonia. D/ / Gill Fernandez Cha, MD / Gill Fernandez Cha, MD Interpreting Provider: Gill Fernandez Cha, MD - Attending Attestation For this encounter, I have reviewed the ADDICTIONS RECOVERY SPECIALIST or PA documentation, treatment plan, and medical decision making; and I have had face to face time with this patient.
[2017-03-31] MEDS ORDERED: *HR* HYDROmorphone (PF) 1 MG/ML SYRINGE IVP PRN (13:17)
== END 2017-03-31 16:01 | disposition home or self-care (01) | DRG 248 ==
LOC: EMEROO 20:24 → 3ANU 20:24
PROVIDERS: ADMIT Surgery; ATTEND Surgery